=== PATIENT | female | born 1985 | race Caucasian/White ===

== ENCOUNTER 2020-10-21 19:11 | Emergency (ER) | payer MEDICARE, MEDICAID ==
[~2020-10-21] VITALS: Ht 175.3 cm; Wt 59.1 kg
[~2020-10-21 19:11] MED LIST: NAPR-56 PO; ONDA4TAB6 PO
[2020-10-21 19:15] VITALS: BP 163/137
[2020-10-21] MEDS ORDERED: IBUP-1985 PO (19:53)
== END 2020-10-21 19:59 | disposition home or self-care (01) ==
LOC: ER 19:12
DX: S90.111A Contusion of right great toe without damage to nail, initial encounter (principal); G43.909 Migraine, unspecified, not intractable, without status migrainosus; Z88.1 Allergy status to other antibiotic agents; Z79.899 Other long term (current) drug therapy; W22.8XXA Striking against or struck by other objects, initial encounter; Y93.89 Activity, other specified; Y92.89 Other specified places as the place of occurrence of the external cause; Y99.8 Other external cause status
CPT/HCPCS: 99282

== ENCOUNTER → 2021-06-12 | Emergency (ER) | payer MEDICARE, MEDICAID ==
[~2021-06-12] VITALS: Ht 172.7 cm; Wt 68.2 kg
[~2021-06-12] MED LIST changes: +IBUP-1985 PO
[2021-06-12 11:28] VITALS: BP 105/65
== END | disposition home or self-care (01) ==
LOC: ER 11:11
DX: M25.531 Pain in right wrist (principal); R25.1 Tremor, unspecified; G43.909 Migraine, unspecified, not intractable, without status migrainosus; Z79.2 Long term (current) use of antibiotics; Z79.899 Other long term (current) drug therapy
CPT/HCPCS: 99281

== ENCOUNTER 2021-09-12 20:02 | Emergency (ER) | payer MEDICARE, MEDICAID | END 2021-09-12 21:13 | disposition left against medical advice (07) | LOC: ER 20:02 | DX: R07.9 Chest pain, unspecified (principal); Z53.21 Procedure and treatment not carried out due to patient leaving prior to being seen by health care provider ==

== ENCOUNTER 2023-09-30 09:34 | Outpatient (CLI) | payer MEDICARE, MEDICAID | END 2023-09-30 23:59 | disposition home or self-care (01) | LOC: RAD 09:34 | PROVIDERS: ATTEND Nurse Practitioner Psychiatric/Mental Health | DX: Z79.899 Other long term (current) drug therapy (principal) | CPT/HCPCS: 93005 ==